=== PATIENT | male | born 1965 | race American Indian/Alaskan Native ===

== ENCOUNTER 2016-07-06 15:45 | Emergency (ER) | payer OTHER ==
[2016-07-06] MEDS ORDERED: TYLENOL #3 PO ONE (19:31)
--- NOTE | 2016-07-06 19:46 | XRay Report ---
FINAL REPORT EXAM: XR KNEE 1-2V LT HISTORY: left knee swelling and pain from injury TECHNIQUE: Frontal and lateral views of left knee. PRIORS: None. FINDINGS: Mild medial joint space narrowing and some marginal spurring in the medial and patellofemoral joint spaces. No apparent fracture or dislocation. Probable small suprapatellar joint effusion. Remainder of tissues grossly unremarkable. IMPRESSION: 1. No acute osseous abnormality. 2. Degenerative changes and probable joint effusion.
--- NOTE | 2016-07-06 19:49 | Emergency Department Report ---
HPI - General Chief Complaint: Extremity Injury, Lower - HPI HPI: 51-year-old -[place] male comes in with complaint of left knee injury today while playing basketball. Patient reports that he was able to walk into his garage walk up 2 flights of stairs lay down and then he started having severe pain and swelling to his left knee. Patient reports no past medical history of fainting significant no surgeries. He currently takes no medications. 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 ED Past Medical Hx - Past Medical History Previous Medical History?: No - Surgical History Past Surgical History?: No - Social History Smoking Status: Never Smoker Substance Use Type: None - Medications Home Medications: Home Medications Medication Instructions Recorded Confirmed Last Taken Type Ibuprofen [Motrin 800 MG tab] 800 mg PO Q8HR PRN #30 tablet 07/06/16 Unknown Rx ED Review of Systems ROS: Stated complaint: LFT KNEE PAIN Other details as noted in HPI Cardiovascular: denies: chest pain, palpitations Endocrine: no symptoms reported Gastrointestinal: denies: abdominal pain, nausea, diarrhea Musculoskeletal: joint swelling (left knee ), arthralgia (left knee ) Physical Exam - Physical Exam Vital Signs: Vital Signs 07/06/16 15:56 Temperature 98.2 F Pulse Rate 87 Respiratory 18 Rate Blood Pressure 129/94 O2 Sat by Pulse 100 Oximetry General: GENERAL: Alert and oriented x3, no apparent distress, Normal Gait, atraumatic. HEAD: Head is normocephalic and a-traumatic. EYES: Extra ocular muscles are intact. Pupils are equal, round, and reactive to light and accommodation. EXTREMITIES/MUSCULOSKELETAL: No cyanosis, clubbing, rash, lesions. very mild edema noted. Full ROM bilaterally. UE/LE Pulses 2+ bilaterally. LE and UE 5+ strength bilaterally NEUROLOGIC: No focal Deficit, Cranial nerves II through XII are grossly intact. No loss of sensation, No facial droop, PSYCHIATRIC: Mood is congruent with affect, SKIN: Warm and dry, No lesions, No ulceration or induration present ED Course Vital Signs 07/06/16 15:56 Temperature 98.2 F Pulse Rate 87 Respiratory 18 Rate Blood Pressure 129/94 O2 Sat by Pulse 100 Oximetry - Reevaluation(s) Reevaluation #1: 07/06/16 19:55 Reports that his pain feels better since having the ibuprofen that he took prior to arriving here at the emergency room. Provider also gave him Tylenol 3 since he was having difficulties with pain when standing. 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 Will place patient in a knee immobilizer and crutches and have her follow-up with orthopedics in the next 3-5 days. Patient verbalized understanding Critical care attestation.: If time is entered above; I have spent that time in minutes in the direct care of this critically ill patient, excluding procedure time. ED Disposition Clinical Impression: Knee pain, acute Qualifiers: Laterality: left Qualified Code(s): M25.562 - Pain in left knee Disposition: DISCHARGED TO HOME OR SELFCARE Is pt being admited?: No Does the pt Need Aspirin: No Condition: Stable Additional Instructions: Please follow up with orthopedics. We will place her on a knee immobilizer and crutches pain medication as prescribed. Prescriptions: Ibuprofen [Motrin 800 MG tab] 800 mg PO Q8HR PRN #30 tablet PRN Reason: Pain Referrals: PRIMARY CARE, [Primary Care Provider] - 3-5 Days SHANNON VILLANUEVA MD [Staff Physician] - 3-5 Days [facility] [Provider Group] - 3-5 Days [facility] [Provider Group] - 3-5 Days [facility] [Provider Group] - 3-5 Days [facility] [Provider Group] - 3-5 Days Forms: Work/School Release Form(ED)
[2016-07-06 20:09] VITALS: BP 128/79
== END 2016-07-06 20:33 | disposition home or self-care (01) ==
LOC: ED 15:45
DX: M25.562 Pain in left knee (principal); X58.XXXA Exposure to other specified factors, initial encounter; Y93.67 Activity, basketball; Y92.39 Other specified sports and athletic area as the place of occurrence of the external cause; Y99.8 Other external cause status

== ENCOUNTER 2020-11-08 12:11 | Emergency (ER) | payer OTHER ==
--- NOTE | 2020-11-08 13:53 | Event Note ---
ED Screening Note Date of service: 11/08/20 Time: 13:52 ED Screening Note: 55-year-old male patient presents emergency department complaints of a laceration to his chin occurring earlier today. Patient states he was playing basketball when another player accidentally bumped him in the chin with his elbow. Tetanus is up-to-date. No other injuries. Tachycardic in triage. General: Awake, appropriately interactive, no acute distress. Neck: Supple. Full range of motion intact. Cardiovascular: Normal peripheral perfusion. Pulmonary: No respiratory distress. Patient is speaking normally without use of accessory muscles. Skin: Laceration involving skin and subcutaneous tissue to the submental area with minimal active bleeding. Neurological: No facial asymmetry. Speech is clear. Follows commands. Patient is alert and oriented. Musculoskeletal: Moves all four extremities spontaneously with normal range of motion. Psych: Cooperative. Appropriate mood and affect. I have greeted and performed a focused rapid initial assessment of this patient. A comprehensive ED assessment and evaluation of the patient, analysis of all test results, and completion of the medical decision-making process will be conducted by additional ED providers. This initial assessment/diagnostic orders/clinical plan/treatment(s) is/are subject to change based on patients health status, clinical progression and re-assessment. Further treatment and workup at subsequent clinical provider's discretion. Patient/guardian urged not to elope from the ED as their condition may be serious if not clinically assessed and managed.
[2020-11-08] MEDS ORDERED: NEOMY 3.5 MG/BACIT 400 UNITS/POLY B 5000 UNITS/GM OINT PACKET TP ONE (15:14)
[2020-11-08] MEDS ORDERED: LIDOCAINE (1%) 10 MG/1 ML VIAL 20 ML MDV INFILTRATI ONE (15:14)
[2020-11-08] MEDS ORDERED: oxyCODONE /ACETAMINOPHEN 5-325MG TAB PO ONE (15:14)
[2020-11-08] MEDS ORDERED: cephALEXin 500 MG CAP PO ONE (15:14)
--- NOTE | 2020-11-08 15:14 | Emergency Department Report ---
ED Laceration HPI - HPI Chief Complaint: Wound/Laceration Stated Complaint: GASH/CUT UNDER CHIN. HIT WITH ELBOW Time Seen by Provider: 11/08/20 15:14 Occurred When: Today Location: Head Severity: moderate Tetanus Status: Up to Date Laceration Symptoms: Yes Pain, No Foreign Body Sensation, No Numbness, No Weakness Other History: 55 yo comes to ER with chin lac sustained while playing basketball today. No LOC. No other injury ED Review of Systems ROS: Stated complaint: GASH/CUT UNDER CHIN. HIT WITH ELBOW Other details as noted in HPI Comment: All other systems reviewed and negative ED Past Medical Hx - Past Medical History Previous Medical History?: No - Surgical History Past Surgical History?: No - Family History Family history: no significant - Social History Smoking Status: Never Smoker Substance Use Type: None - Medications Home Medications: Home Medications Medication Instructions Recorded Confirmed Last Taken Type cephALEXin [Keflex] 500 mg PO Q12HR #10 cap 11/08/20 Unknown Rx traMADoL [Ultram] 50 mg PO Q6HR PRN #10 tablet 11/08/20 Unknown Rx Laceration Physical Exam - Exam General: Vital signs noted. No distress. Alert and acting appropriately. Laceration Location: Head Laceration Exam: Yes Normal Distal CMS, No Foreign Body, No Exposed Tendon, Vessel, or Nerve, No Tendon Injury ED Course Vital Signs 11/08/20 12:40 Temperature 98.6 F Pulse Rate 109 H Respiratory 18 Rate Blood Pressure 131/80 O2 Sat by Pulse 96 Oximetry - Laceration /Wound Repair chin Wound Location: face Wound Length (cm): 6 Wound's Depth, Shape: superficial Wound Explored: clean Irrigated w/ Saline (ccs): 500 Betadine Prep?: Yes Anesthesia: 1% Lidocaine Volume Anesthetic (ccs): 3 Wound Debrided: minimal Wound Repaired With: sutures Suture Size/Type: 4:0 Number of Sutures: 6 Sterile Dressing Applied?: Yes Progress: tolerated well ED Medical Decision Making - Medical Decision Making lac repair tdap utd motrin for pain keflex po x 1 dc home with dc plan of care including suture care and removal. Pt verbalizes understanding of dc plan of care. Vital Signs 11/08/20 11/08/20 12:40 15:31 Temperature 98.6 F Pulse Rate 109 H Respiratory 18 16 Rate Blood Pressure 131/80 O2 Sat by Pulse 96 Oximetry - Differential Diagnosis lac Critical care attestation.: If time is entered above; I have spent that time in minutes in the direct care of this critically ill patient, excluding procedure time. ED Disposition Clinical Impression: Laceration Disposition: DC-01 TO HOME OR SELFCARE Is pt being admited?: No Does the pt Need Aspirin: No Condition: Stable Instructions: Laceration Care, Adult Additional Instructions: keep wound clean and dry motrin or tylenol for mild pain ultram for severe pain ice tonight will help with swelling follow up in ER in 7 days for suture removal keflex as ordered until gone Prescriptions: cephALEXin [Keflex] 500 mg PO Q12HR #10 cap traMADoL [Ultram] 50 mg PO Q6HR PRN #10 tablet PRN Reason: Pain Referrals: NAN PRITCHETT MD [Staff Physician] - 3-5 Days Time of Disposition: 16:26
[2020-11-08] MEDS ORDERED: SODIUM CHLORIDE 0.9% IRR 500 ML BOTTLE IR ONE (16:00)
[2020-11-08 16:41] VITALS: BP 130/70
== END 2020-11-08 16:39 | disposition home or self-care (01) ==
LOC: ED 12:11
DX: S01.81XA Laceration without foreign body of other part of head, initial encounter (principal); Z79.899 Other long term (current) drug therapy; W22.8XXA Striking against or struck by other objects, initial encounter; Y93.67 Activity, basketball; Y92.89 Other specified places as the place of occurrence of the external cause; Y99.8 Other external cause status
CPT/HCPCS: 12014; 99282; A6250

== ENCOUNTER 2020-11-15 08:27 | Emergency (ER) | payer OTHER ==
[2020-11-15 08:33] VITALS: BP 141/77
--- NOTE | 2020-11-15 09:17 | Emergency Department Report ---
Suture/Staple Removal - HPI Chief Complaint: Laceration/Recheck/Suture Stated Complaint: STITCH REMOVAL Time Seen by Provider: 11/15/20 08:56 When Sutures or Ramila Placed: 8-10 Days Ago Wound Location: Chin ED Review of Systems ROS: Stated complaint: STITCH REMOVAL Other details as noted in HPI Comment: All other systems reviewed and negative Constitutional: denies: chills, fever ENT: denies: ear pain, throat pain Respiratory: denies: cough, shortness of breath, wheezing Cardiovascular: denies: chest pain, palpitations Gastrointestinal: denies: abdominal pain, nausea, diarrhea Skin: other (laceration chin ) Neurological: denies: headache, weakness, paresthesias Psychiatric: denies: anxiety, depression, auditory hallucinations, visual hallucinations, homicidal thoughts, suicidal thoughts Hematological/Lymphatic: denies: easy bleeding, easy bruising, swollen glands ED Past Medical Hx - Social History Smoking Status: Never Smoker Substance Use Type: None - Medications Home Medications: Home Medications Medication Instructions Recorded Confirmed Last Taken Type cephALEXin [Keflex] 500 mg PO Q12HR #10 cap 11/08/20 Unknown Rx traMADoL [Ultram] 50 mg PO Q6HR PRN #10 tablet 11/08/20 Unknown Rx Suture Removal Exam - Exam General: Vital signs noted. No distress. Alert and acting appropriately. Wound: Yes Tenderness (very mild mainly around wound ), No Pathologic Erythema, No Drainage, No Pus, No Wound Dehiscence Other Systems: All other systems reviewed and are unremarkable. ED Course Vital Signs 11/15/20 08:32 Temperature 97.9 F Pulse Rate 79 Respiratory 16 Rate Blood Pressure 141/77 O2 Sat by Pulse 97 Oximetry - Procedure Description Procedures done: Suture removal - 7 sutures removed from underneath chin. WOund healing well without signs of infection. Critical care attestation.: If time is entered above; I have spent that time in minutes in the direct care of this critically ill patient, excluding procedure time. ED Disposition Clinical Impression: Visit for suture removal Disposition: DC-01 TO HOME OR SELFCARE Is pt being admited?: No Does the pt Need Aspirin: No Condition: Stable Instructions: Wound Closure Removal, Care After Additional Instructions: Continue to keep wound clean daily with soap and water. Dry well after each cleaning and you can apply a thin layer of Neosporin after each cleaning. You can trim the hairs in the area but I recommend that you do not shave fully for another 7 days. Follow-up with your primary care doctor as needed. Return to the ER if your symptoms changes or worsens in any way. Referrals: PRIMARY CARE, [Primary Care Provider] - 3-5 Days Time of Disposition: 09:17
== END 2020-11-15 09:30 | disposition home or self-care (01) ==
LOC: ED 08:27
DX: Z48.02 Encounter for removal of sutures (principal); Z53.21 Procedure and treatment not carried out due to patient leaving prior to being seen by health care provider